=== PATIENT | female | born 1965 | race Caucasian/White ===

== ENCOUNTER → 2019-06-30 | Outpatient (CLI) | payer BC ==
--- NOTE | 2019-07-02 14:26 | RAD ---
DATE: 06/30/2019 11:07 AM EXAM: MAMMO KRISS SCREENING BILATERAL HISTORY: routine screening evaluation. COMPARISON: 06/30/2014 Bilateral CC and MLO views of the breasts were performed. Bilateral breast tomosynthesis was performed in CC and MLO projections. This study was interpreted with the benefit of Computerized Aided Detection (CAD). FINDINGS: Breast Density: SCATTERED The breast parenchyma shows scattered fibroglandular densities. Breast parenchyma level B Focal asymmetry is seen in the upper outer right breast. Immediately posterior and slightly lateral to this there is a 6 mm well-circumscribed nodule. No suspicious masses, microcalcifications or architectural distortion is present to suggest malignancy in the left breast. The visualized axillae are unremarkable. IMPRESSION: Right breast mass and focal asymmetry, findings for which additional imaging is advised. BI-RADS CATEGORY: 0 INCOMPLETE: NEEDS ADDITIONAL IMAGING EVALUATION AND/OR PRIOR MAMMOGRAMS FOR COMPARISON. RECOMMENDED FOLLOW-UP: ADD ADDITIONAL IMAGING. Additional imaging of the right breast to include spot compression views and ultrasound is recommended. PQRS compliance statement: Patient information was entered into a reminder system with a target due date for the next mammogram. Mammography is a sensitive method for finding small breast cancers, but it does not detect them all and is not a substitute for careful clinical examination. A negative mammogram does not negate a clinically suspicious finding and should not result in delay in biopsying a clinically suspicious abnormality. "Our facility is accredited by the [employer] Mammography [employer]."
== END | disposition home or self-care (01) ==
LOC: MAMMO 10:53
PROVIDERS: ATTEND Physician Assistant Medical
DX: Z12.31 Encounter for screening mammogram for malignant neoplasm of breast (principal)
CPT/HCPCS: 77063; 77067

== ENCOUNTER → 2019-07-15 | Outpatient (CLI) | payer BC ==
--- NOTE | 2019-07-16 13:26 | RAD ---
DATE: 07/15/2019 1:55 PM EXAM: DIGITAL DIAGNOSTIC RT, BREAST RIGHT HISTORY: further evaluation of a finding noted on her most recent screening mammographic examination. On that examination an asymmetry and mass was reported within the right outer breast COMPARISON: 06/30/2019 06/30/2014 Spot compression CC and MLO views and full field ML view of the right breast were obtained. This study was interpreted with the benefit of Computerized Aided Detection (CAD). FINDINGS: Breast Density: SCATTERED The breast parenchyma shows scattered fibroglandular densities. Breast parenchyma level B The mass and the architectural distortion or again seen on the spot compression views. Therefore ultrasound was performed. At the 11:00 position, 7 cm from the nipple a well circumscribed, peripherally hypoechoic lesion with central echogenicity and measures 5 x 2 x 6 mm. At 11:30 position, 3 cm from the nipple to hypoechoic lesions are seen measuring 5 x 2 and 3 x 1 mm in size with enhanced through transmission, possibly cystic. IMPRESSION: Well-circumscribed right breast mass may represent a lymph node. No definite sonographic correlate to the mammographic findings of focal asymmetry. BI-RADS CATEGORY: 3 PROBABLY BENIGN FINDING(S)-SHORT INTERVAL FOLLOW-UP SUGGESTED RECOMMENDED FOLLOW-UP: 6M 6 MONTH FOLLOW-UP 6 month follow-up imaging of the right breast include spot compression views and ultrasound is recommended to ensure stability. PQRS compliance statement: Patient information was entered into a reminder system with a target due date for the next mammogram. Mammography is a sensitive method for finding small breast cancers, but it does not detect them all and is not a substitute for careful clinical examination. A negative mammogram does not negate a clinically suspicious finding and should not result in delay in biopsying a clinically suspicious abnormality. "Our facility is accredited by the [employer] Mammography [employer]."
== END | disposition home or self-care (01) ==
LOC: MAMMO 13:41
PROVIDERS: ATTEND Physician Assistant Medical
DX: N64.89 Other specified disorders of breast (principal); N63.10 Unspecified lump in the right breast, unspecified quadrant
CPT/HCPCS: 76641; 77065